=== PATIENT | male | born 1980 | race Caucasian/White ===

== ENCOUNTER 2016-12-28 16:49 | Emergency (ER) | payer SELFPAY ==
--- NOTE | ~2016-12-28 | ER ---
PATIENT'S NAME: [facility] AGE: 36 Y [address] ROOM: [place] [id number] LOCATION: [facility] ADMIT DATE: 12/28/2016 ER/Outpatient Report DISCHARGE DATE: 12/28/2016 FAMILY PHYSICIAN: PHYSICIAN, ALEXI ATTENDING PHYSICIAN: Jagruti Esteban Time of Arrival: 1649 hours. Time of Evaluation: 1700 hours. CHIEF COMPLAINT: Vomiting, diarrhea, nasal congestion, cough. HISTORY OF PRESENT ILLNESS: This 36-year-old male presents to the ER. He states he has not been feeling well for the past week. He states he has had nasal congestion, a cough productive of green phlegm. He states he has also had nausea, vomiting, and diarrhea. He is not for sure if he has been running any fevers but has felt chilled, and he states he has body aches as well. He states family has had the same illness, but their symptoms have all improved except for his. The patient states he is not taking anything [id number] for his medications, and also states while he is here he is having some right lower dental pain. ALLERGIES: NO KNOWN ALLERGIES. MEDICATIONS: None. PAST MEDICAL HISTORY: Negative. PAST SURGICAL HISTORY: None. SOCIAL HISTORY: Smokes half pack a day for the last 25 years. Denies any drug or alcohol use. REVIEW OF SYSTEMS: All systems were reviewed and were negative with the exception of those discussed in the HPI. PHYSICAL EXAMINATION: VITAL SIGNS: Weight 89.4 kg taken, blood pressure is 135/95, pulse 87, respirations 22, temperature 98.7 degrees tympanically, and saturations 98% on room air. Nelly Coma Score is 15. PATIENT'S NAME: [place] [facility] AGE: 36 Y [address] ROOM: [place] [id number] LOCATION: ED ADMIT DATE: 12/28/2016 ER/Outpatient Report DISCHARGE DATE: 12/28/2016 FAMILY PHYSICIAN: PHYSICIAN, ALEXI ATTENDING PHYSICIAN: Jagruti Esteban GENERAL: An alert, calm, well-developed male, in no obvious distress. HEENT: Head: Normocephalic. Eyes: Pupils are equal and reactive to light. Ears: TMs display good light reflexes bilaterally. Auditory canals clear. Nose: Turbinates pink with clear drainage. Throat is slightly erythematic. No exudates are seen. He does have widespread dental decay. LUNGS: Clear to auscultation bilaterally. HEART: Regular rate and rhythm. ABDOMEN: Soft, it is nontender. He has good bowel sounds throughout. No masses are palpated. EXTREMITIES: No clubbing or cyanosis. He has full range of motion of all limbs. LABORATORY DATA AND X-RAYS: CBC: White count is 9.2, hemoglobin is 14.7, platelets 186, ANC of 6.1. CMS: Glucose is 101, otherwise unremarkable. Chest x-ray was negative for any infiltrate. IMPRESSION: 1. Nausea, vomiting, diarrhea. 2. Nasal congestion. 3. Cough. 4. Right lower dental pain. ASSESSMENT AND PLAN: We did start an IV here in the emergency room. Did give him some IV fluids along with some Zofran. The patient rested comfortably his entire stay. I will dismiss him to home with prescription for Zofran and amoxicillin to use as directed. He needs to drink small amounts of fluids frequently, monitor his symptoms, and follow up with his primary care physician if no better, and he needs to see his dentist as soon as possible. The patient understands and agrees with care. GITA JERRY PA-C FOR MD ANGELIA MILES/marcio /[id number] d: t: 01/01/17 1611, OUTPATIENT REPORT
[2016-12-28 17:33] LABS: BASOPHIL # 0.1 K/uL (0.0-0.2); BASOPHIL % 0.5 %; EOSINOPHIL # 0.2 K/uL (0.0-0.5); EOSINOPHIL % 2.3 %; HEMATOCRIT 41.9 % (37.0-53.0); HEMOGLOBIN 14.7 g/dL (12.0-17.0); IMMATURE GRANULOCYTE % 0.4 %; LYMPHOCYTE # 2.3 K/uL (0.8-4.0); LYMPHOCYTE % 24.8 %; MCHC 35.1 gm/dL (32.0-36.5); MCV 91.1 fl (83.0-98.0); MONOCYTE # 0.5 K/uL (0.0-1.0); MONOCYTE % 5.3 %; MPV 10.2 fl (9.4-12.4); NEUTROPHIL # (ANC) 6.1 K/uL (1.4-9.0); NEUTROPHIL % 66.7 %; NRBC % 0 /100WBC (0-0.00); PLATELET COUNT 186 K/uL (150-450); RDW-CV 12.3 % (11.9-14.6); WBC 9.2 K/uL (4.0-11.0)
[2016-12-28 17:49] LABS: ALBUMIN 3.5 gm/dL (3.5-5.0); ALK PHOS 69 IU/L (33-138); ALT 37 IU/L (12-78); ANION GAP 10.7 (10.0-19.0); AST 20 IU/L (10-40); BLOOD UREA NITROGEN 13 mg/dL (6-24); CALCIUM 8.7 mg/dL (8.5-10.5); CHLORIDE 111 mMol/L (96-110); CO2 26 mMol/L (22-32); ESTIMATED GFR (MDRD EQUATION) > 60; POTASSIUM 3.7 mMol/L (3.7-5.1); SODIUM 144 mMol/L (135-145); TOTAL BILIRUBIN 0.2 mg/dL (0.0-1.5); TOTAL PROTEIN 6.6 g/dL (6.0-8.4)
== END 2016-12-28 18:25 | disposition disaster alternative care site (69) ==
LOC: GMED 16:49
PROVIDERS: Physician Assistant Medical
DX: R11.2 Nausea with vomiting, unspecified (principal); K08.89 Other specified disorders of teeth and supporting structures; R09.81 Nasal congestion; R05 Cough; R19.7 Diarrhea, unspecified; F17.210 Nicotine dependence, cigarettes, uncomplicated
CPT/HCPCS: J2405; J7030